=== PATIENT | male | born 1995 | race Caucasian/White ===

== ENCOUNTER 2017-11-02 10:40 | Emergency (ER) | payer MEDICAID, OTHER ==
[~2017-11-02] VITALS: Ht 188 cm; Wt 68.2 kg
[2017-11-02] MEDS ORDERED: IBUPROFEN 800 MG TABLET PO ONE (11:15)
[2017-11-02 12:00] LABS: INFLUENZA TYPE B NEGATIVE FOR TYPE B (NEGATIVE)
[2017-11-02 12:33] VITALS: BP 101/59
== END 2017-11-02 13:29 | disposition home or self-care (01) ==
LOC: EMS 10:45
DX: J06.9 Acute upper respiratory infection, unspecified (principal)
CPT/HCPCS: 87430; 87804; 99284

== ENCOUNTER 2020-01-11 21:00 | Emergency (ER) | payer MEDICAID, OTHER ==
[~2020-01-11] VITALS: Ht 172.7 cm; Wt 73.0 kg
[2020-01-11 22:49] LABS: GLUCOSE,POINT OF CARE 99 MG/DL (70-110)
[2020-01-11 23:25] VITALS: BP 110/70
== END 2020-01-11 23:25 | disposition home or self-care (01) ==
LOC: EMS 21:00
DX: F10.129 Alcohol abuse with intoxication, unspecified (principal)
CPT/HCPCS: 82948

== ENCOUNTER 2023-11-11 16:53 | Emergency (ER) | payer OTHER ==
[~2023-11-11] VITALS: Ht 172.7 cm; Wt 81.8 kg
[2023-11-11 17:00] VITALS: TEMP 98
[2023-11-11 18:54] VITALS: BP 114/70; PULSE 97; RESP 18
[2023-11-11] MEDS ORDERED: IBUP-1554 PO (21:21)
[2023-11-11] MEDS ORDERED: ACET-2080 PO (21:21)
[2023-11-11] MEDS ORDERED: ACETAMINOPHEN/CODEINE 300-30 MG TABLET PO ONE (21:30)
[2023-11-11] MEDS ORDERED: IBUPROFEN 600 MG TABLET PO ONE (21:30)
== END 2023-11-11 21:34 | disposition home or self-care (01) ==
LOC: EMS 16:54
DX: S60.212A Contusion of left wrist, initial encounter (principal); F10.90 Alcohol use, unspecified, uncomplicated; X58.XXXA Exposure to other specified factors, initial encounter; Y93.89 Activity, other specified; Y92.89 Other specified places as the place of occurrence of the external cause; Y99.8 Other external cause status
CPT/HCPCS: 99283

== ENCOUNTER 2024-01-04 16:26 | Emergency (ER) | payer OTHER ==
[~2024-01-04] VITALS: Ht 172.7 cm; Wt 89.0 kg
[~2024-01-04 16:26] MED LIST: ACET-2080 PO; IBUP-1554 PO
[2024-01-04 16:34] VITALS: BP 108/74; PULSE 78; RESP 16; TEMP 98.1
[2024-01-04 16:51] LABS: COVID AG,FIA SOURCE NASAL SWAB
[2024-01-04 17:22] LABS: RAPID GROUP A STREP NEGATIVE (NEGATIVE)
[2024-01-04 17:25] LABS: INFLUENZA TYPE A NEGATIVE FOR TYPE A (NEGATIVE); INFLUENZA TYPE B NEGATIVE FOR TYPE B (NEGATIVE); SARS-COV2 (COVID) ANTIGEN,FIA Negative (Negative)
[2024-01-04] MEDS: KETOROLAC TROMETHAMINE 30 MG/ML VIAL IM ONE (18:14)
[2024-01-04] MEDS: ACETAMINOPHEN 500 MG TABLET PO ONE (18:14)
[2024-01-04] MEDS: DEXAMETHASONE 4 MG TABLET PO ONE (18:15)
[2024-01-04] MEDS ORDERED: PENI500T2 PO (18:59)
[2024-01-04] MEDS ORDERED: IBUP-1492 PO (19:02)
== END 2024-01-04 19:26 | disposition home or self-care (01) ==
LOC: EMS 16:26
DX: J03.90 Acute tonsillitis, unspecified (principal); F17.210 Nicotine dependence, cigarettes, uncomplicated; F10.90 Alcohol use, unspecified, uncomplicated; Z20.822 Contact with and (suspected) exposure to COVID-19; Y90.9 Presence of alcohol in blood, level not specified
CPT/HCPCS: 99283; 87426; 87430; 87804; 96372; J8540; J1885